=== PATIENT | male | born 1990 ===

== ENCOUNTER 2025-06-12 13:40 | Emergency (ER) | payer MEDICAID ==
[~2025-06-12] VITALS: Ht 167.6 cm; Wt 101.6 kg
[2025-06-12 14:50] LABS: Influenza A, PCR NEGATIVE (NEGATIVE); Influenza B, PCR NEGATIVE (NEGATIVE); Resp Syncytial Virus, PCR NEGATIVE (NEGATIVE); SARS-Cov-2 (COVID-19) PCR, MMC NEGATIVE (NEGATIVE)
[2025-06-12] MEDS ORDERED: Ipratropium Bromide INH 0.02% 0.5 mg/2.5ML Vial INH SCH (16:40)
[2025-06-12] MEDS ORDERED: Albuterol 2.5 MG/3 ML VIAL INH SCH (16:40)
[2025-06-12] MEDS ORDERED: PRED20 PO (17:38)
[2025-06-12] MEDS ORDERED: ALBU90OI INH (17:38)
== END 2025-06-12 17:42 | disposition home or self-care (01) ==
LOC: ER 13:40
PROVIDERS: Physician Assistant
DX: J40 Bronchitis, not specified as acute or chronic (principal); R06.2 Wheezing; Z11.52 Encounter for screening for COVID-19
CPT/HCPCS: 71046; 87637; 99283-25; J7512

== ENCOUNTER 2025-06-30 15:52 | Emergency (ER) | payer MEDICAID ==
[~2025-06-30] VITALS: Ht 167.6 cm; Wt 97.5 kg
[~2025-06-30 15:52] MED LIST: ALBU90OI INH; PRED20 PO
[2025-06-30] MEDS ORDERED: Ipratropium/Albuterol SulF 2.5-0.5MG/3 ML Amp INH ONE (16:10)
[2025-06-30] MEDS ORDERED: PRED20 PO (18:47)
[2025-06-30] MEDS ORDERED: BENZ100A PO (18:47)
== END 2025-06-30 18:31 | disposition home or self-care (01) ==
LOC: ER 15:52
DX: J40 Bronchitis, not specified as acute or chronic (principal); J06.9 Acute upper respiratory infection, unspecified; Z79.52 Long term (current) use of systemic steroids
CPT/HCPCS: 71046; 99283-25; A9270; J7512